=== PATIENT | female | born 1980 | race Caucasian/White ===

== ENCOUNTER 2016-08-04 14:18 | Observation (INO) | payer MEDICAID ==
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
[2016-08-04] MEDS ORDERED: LIDOCAINE 4%/TETRACAINE 0.5%/EPI 0.18% 5 ML TOPICAL SOLN TOP ONE (14:33)
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
[2016-08-04] MEDS ORDERED: MORPHINE SULFATE 10 MG/ML INJ IM ONE (15:42)
[2016-08-04 16:21] LABS: ABSOLUTE BASOPHILS # (AUTO) 0.1 10^3/uL (0.0-0.2); ABSOLUTE EOSINOPHILS # (AUTO) 0.2 10^3/uL (0.0-0.6); ABSOLUTE NEUT (AUTO) 12.4 10^3/uL (1.7-8.2); BASOPHILS % (AUTO) 0.6 % (0-2); EOSINOPHILS % (AUTO) 1.2 % (0-6); HEMATOCRIT 38.7 % (36.0-47.0); HEMOGLOBIN 12.7 g/dL (12.0-15.5); HGB HCT DIFFERENCE -0.6; LYMPHOCYTES % (AUTO) 12.7 % (13-45); MEAN CORPUSCULAR HEMOGLOBIN 29.9 pg (27.0-33.4); MEAN CORPUSCULAR HGB CONC 32.8 g/dL (32.0-36.0); MEAN CORPUSCULAR VOLUME 91 fl (80-97); MONOCYTES % (AUTO) 6.3 % (3-13); RED BLOOD COUNT 4.25 10^6/uL (3.72-5.28); RED CELL DISTRIBUTION WIDTH 12.9 % (11.5-14.0); SEGMENTED NEUTROPHILS % (AUTO) 79.2 % (42-78); WHITE BLOOD COUNT 15.7 10^3/uL (4.0-10.5)
[2016-08-04 16:39] LABS: ALANINE AMINOTRANSFERASE 83 U/L (9-52); ALBUMIN 3.5 g/dL (3.5-5.0); ALKALINE PHOSPHATASE 94 U/L (38-126); ANION GAP 8 (5-19); ASPARTATE AMINO TRANSFERASE 70 U/L (14-36); BILIRUBIN,TOTAL 0.2 mg/dL (0.2-1.3); BLOOD UREA NITROGEN 9 mg/dL (7-20); CALCIUM 9.3 mg/dL (8.4-10.2); CARBON DIOXIDE 30 mmol/L (22-30); CHLORIDE 99 mmol/L (98-107); CREATININE RESULT 0.67 mg/dL (0.52-1.25); GLUCOSE 76 mg/dL (75-110); SODIUM 137.2 mmol/L (137-145); TOTAL PROTEIN 6.4 g/dL (6.3-8.2)
[2016-08-04 16:43] LABS: APPEARANCE,URINE CLEAR; BILIRUBIN,URINE NEGATIVE (NEGATIVE); GLUCOSE, URINE NEGATIVE (NEGATIVE); KETONES,URINE NEGATIVE (NEGATIVE); LEUKOCYTE ESTERASE,URINE NEGATIVE (NEGATIVE); NITRITE,URINE NEGATIVE (NEGATIVE); PROTEIN,URINE NEGATIVE (NEGATIVE); URINE SPECIFIC GRAVITY 1.012; UROBILINOGEN,URINE NEGATIVE mg/dL (<2.0)
--- NOTE | 2016-08-04 16:43 | HISTORY AND PHYSICAL E ---
History and Physical NAME: DORENE DWYER : 1980 AGE: 36Y ADMITTED: 08/04/2016 ROOM: HISTORY OF PRESENT ILLNESS: A 36-year-old female patient presented to the emergency room with a history of pain and swelling on the face and upper lip just to the left of midline. The patient had this pain 3 days ago and increasing in severity along with the pain and this has been going on for the last 2 to 3 days. She went to the primary care and they gave some antibiotic. Came to emergency room with increasing swelling and pain. Patient does not recollect history of an insect bite and never had this kind of problem before. No history of headache. No history of seizures. PAST MEDICAL PROBLEMS: No known medical issues. SURGICAL HISTORY: No major surgeries in the past. REVIEW OF SYSTEMS: As per examination. PHYSICAL EXAMINATION: GENERAL: She is not in any distress. VITAL SIGNS: Afebrile. HEENT: Her lip examination on the face on the left side just above on to of the upper lip just to the left of midline there is about 3 cm area of induration with an abscess with surrounding cellulitis. NECK: No lymphadenopathy in the neck. RESPIRATORY: Both are clear to auscultation. CARDIOVASCULAR: Both heart sounds are regular. No murmur or gallop. ABDOMEN: Soft abdomen. Nontender. No masses palpable. No hernia. EXTREMITIES: Warm and well perfused. IMPRESSION OVERALL: Large face soft tissues of the face abscess. PLAN: IV antibiotics, Unasyn started. She will *------*. Will post for emergency incision and drainage. DICTATING PHYSICIAN: COREY DE LA CRUZ M.D. [id number] PHY#: [id number] ID: [id number] JOB#: [id number] ACCT: [id number] cc:NO Gabrielle DARBY
[2016-08-04] MEDS ORDERED: AMPICILLIN SOD/SULBACTAM 3 GM VIAL IV PRN (18:35)
[2016-08-04] MEDS ORDERED: KETOROLAC TROMETHAMINE INJ/PF 30 MG/1 ML SDV IV ONE (18:45)
[2016-08-04] MEDS ORDERED: HYDROMORPHONE HCL INJ/PF 2 MG/ML AMPULE IV ONE (18:45)
[2016-08-04] MEDS: AMPICILLIN SODIUM/SULBACTAM NA 3 GM in NORMAL SALINE 100 ML IV SCH (20:29)
[2016-08-04] MEDS ORDERED: AMPICILLIN SOD/SULBACTAM 3 GM VIAL ONE (21:12)
[2016-08-05] MEDS: AMPICILLIN SODIUM/SULBACTAM NA 3 GM in NORMAL SALINE 100 ML IV SCH ×3 (00:58→11:50)
[2016-08-05] MEDS: HYDROMORPHONE HCL INJ/PF 2 MG/ML AMPULE IV PRN ×2 (06:00→09:08)
[2016-08-05] MEDS ORDERED: DIPHENHYDRAMINE HCL 50 MG/ML VIAL IV PRN (06:03)
[2016-08-05] MEDS ORDERED: KETOROLAC TROMETHAMINE INJ/PF 30 MG/1 ML SDV IV SCH (12:00)
[2016-08-05 12:15] VITALS: BP 109/68
--- NOTE | 2016-08-05 16:51 | OPERATIVE REPORT E ---
Operative Report NAME: DORENE DWYER : 1980 AGE: 36Y DATE OF SURGERY: 08/04/2016 ROOM: 531 PREOPERATIVE DIAGNOSIS: @ POSTOPERATIVE DIAGNOSIS: @ PROCEDURE: Incision and drainage of an abscess on the left side of the face, right on the upper lip on the left side, a large abscess along with necrotic tissue . Most likely due to a spider bite. 1. The procedure was incision and drainage of a complex, multiloculated abscess. 2. Debridement of the soft-tissue necrosis. SURGEON: COREY DE LA CRUZ M.D. ANESTHESIA: IV sedation with 2 mg Dilaudid and 30 of Toradol IV given and 1% lidocaine local anesthesia. Prior to this, the patient was explained about the indications, risks, benefits. Informed consent was obtained, and it was done at the bedside. TISSUE REMOVED OR ALTERED: @ PROCEDURE: The area was cleaned sterile field. After that, 1% lidocaine area. After that, about a centimeter thick, 10 mL pus was drained from underneath. After the pus was drained, necrotic tissue around that area was debrided sharply until the wound was clean and then the abscess cavity was irrigated with normal saline. Wound was lightly dressings were applied. The patient tolerated the procedure well. She will be admitted for intravenous antibiotic therapy and pain management. DICTATING PHYSICIAN: COREY DE LA CRUZ M.D. [id number] PHY#: [id number] ID: [id number] JOB#: [id number] ACCT: [id number] cc:COREY DE LA CRUZ M.D. > MTDD
--- NOTE | 2016-08-05 16:53 | DISCHARGE SUMMARY E ---
Discharge Summary NAME: DORENE DWYER : 1980 AGE: 36Y ADMITTED: 08/04/2016 DISCHARGED: 08/05/2016 ADMITTING DIAGNOSIS: Cellulitis of the face with abscess of the upper lip face area. DISCHARGE DIAGNOSIS: Cellulitis of the face with abscess of the upper lip face area. OPERATION: Incision and drainage of the abscess of the upper lip of the face along with debridement of the underlying necrotic soft tissue. Patient today feeling better, resolving. Still has some induration which will take several days to resolve which was explained to the patient. She is being discharged home with pain medication of oxycodone and antibiotics to continue, Augmentin twice a day. She will follow up in the clinic. DICTATING PHYSICIAN: COREY DE LA CRUZ M.D. [id number] PHY#: [id number] ID: [id number] JOB#: [id number] ACCT: [id number] cc:Paul FRENCH M.D. > MTDD
--- NOTE | 2016-08-05 17:08 | DISCHARGE SUMMARY E ---
Discharge Summary NAME: DORENE DWYER : 1980 AGE: 36Y ADMITTED: 08/04/2016 DISCHARGED: 08/05/2016 ADMITTING DIAGNOSIS: Cellulitis of the face along with abscess on the left part of the upper lip. PROCEDURE: Incision and drainage of the abscess. She needed to have IV antibiotics and was admitted overnight last night. Today, she is feeling better. Edema is coming down, cellulitis resolving. She is being discharged home. DISCHARGE MEDICATIONS: 1. Augmentin for 10 days. 2. Pain medication, oxycodone. FOLLOWUP: Surgery Clinic in 1-2 weeks. She was given instructions about change of wound dressings and will report to the Emergency Room or Surgery Clinic office as needed. DICTATING PHYSICIAN: COREY DE LA CRUZ M.D. [id number] PHY#: [id number] ID: [id number] JOB#: [id number] ACCT: [id number] cc:Paul FRENCH M.D. >
== END 2016-08-05 14:11 | disposition home or self-care (01) ==
LOC: ER 14:18 → UNDOADMOB 16:38 → EH 16:38 → 5 16:38 → EH 19:34
PROVIDERS: ATTEND Colon & Rectal Surgery
PROC: 0W920ZZ Drainage of Face, Open Approach (ICD-10-PCS; principal; 2016-08-04)
DX: L02.01 Cutaneous abscess of face (principal)
CPT/HCPCS: 40799; 99285; 96372; 96374; 96375; 36415; 87070; 87205; 85025; 81025; 87075; 87077; 80053; 81001; 87186; 70491; G0378 ×3; J0295; J1885 ×2; J2270; J1170 ×2; J3490

== ENCOUNTER 2018-02-20 18:25 | Emergency (ER) | payer SELFPAY ==
[2018-02-20 18:31] VITALS: BP 114/62
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
[2018-02-20] MEDS ORDERED: DIPH/PERTUSS(ACELL)/TETANUS VAC/PF 0.5 ML SYR (>=10YO) IM ONE (19:02)
== END 2018-02-20 19:24 | disposition home or self-care (01) ==
LOC: ER 18:25
DX: S61.012A Laceration without foreign body of left thumb without damage to nail, initial encounter (principal); W26.0XXA Contact with knife, initial encounter; Y93.89 Activity, other specified; Y92.009 Unspecified place in unspecified non-institutional (private) residence as the place of occurrence of the external cause; F17.210 Nicotine dependence, cigarettes, uncomplicated; Z71.6 Tobacco abuse counseling; Z86.14 Personal history of Methicillin resistant Staphylococcus aureus infection; Z88.5 Allergy status to narcotic agent; Z88.8 Allergy status to other drugs, medicaments and biological substances; Z23 Encounter for immunization
CPT/HCPCS: 90471; 90715; 99283; 99406

== ENCOUNTER 2019-03-04 18:53 | Inpatient (IN) | payer OTHER ==
[2019-03-04] MEDS ORDERED: NALOXONE HCL INJ/PF 0.4 MG/1 ML SDV IV ONE (19:06)
[2019-03-04] MEDS ORDERED: NORMAL SALINE 500 ML with NALOXONE HCL 2 MG IV PRN ×2 (19:06)
[2019-03-04] MEDS ORDERED: NORMAL SALINE 1000 ML 1,000 ML IV ONE (19:07)
[2019-03-04] MEDS ORDERED: ONDANSETRON HCL INJ/PF 4 MG/2 ML SDV ONE (19:13)
[2019-03-04] MEDS ORDERED: AMMONIA INHALANTS 10 AMPUL/BOX IH ONE (19:15)
[2019-03-04 19:24] LABS: ABSOLUTE BASOPHILS # (AUTO) 0.1 10^3/uL (0.0-0.2); ABSOLUTE EOSINOPHILS # (AUTO) 0.2 10^3/uL (0.0-0.6); ABSOLUTE LYMPHOCYTES (AUTO) 2.4 10^3/uL (0.5-4.7); ABSOLUTE MONOCYTES (AUTO) 0.9 10^3/uL (0.1-1.4); ABSOLUTE NEUT (AUTO) 4.1 10^3/uL (1.7-8.2); BASOPHILS % (AUTO) 0.8 % (0-2); EOSINOPHILS % (AUTO) 2.8 % (0-6); HEMATOCRIT 34.5 % (36.0-47.0); HEMOGLOBIN 11.6 g/dL (12.0-15.5); LYMPHOCYTES % (AUTO) 31.5 % (13-45); MEAN CORPUSCULAR HEMOGLOBIN 30.7 pg (27.0-33.4); MEAN CORPUSCULAR HGB CONC 33.5 g/dL (32.0-36.0); MEAN CORPUSCULAR VOLUME 92 fl (80-97); MONOCYTES % (AUTO) 11.5 % (3-13); PLATELET COUNT 279 10^3/uL (150-450); RED BLOOD COUNT 3.76 10^6/uL (3.72-5.28); RED CELL DISTRIBUTION WIDTH 14.2 % (11.5-14.0); SEGMENTED NEUTROPHILS % (AUTO) 53.4 % (42-78); TOTAL CELLS COUNTED % (AUTO) 100 %; WHITE BLOOD COUNT 7.6 10^3/uL (4.0-10.5)
[2019-03-04] MEDS ORDERED: SUCCINYLCHOLINE CHLORIDE INJ 200 MG/10 ML VIAL IV ONE (19:28)
[2019-03-04] MEDS ORDERED: ETOMIDATE INJ/PF 20 MG/10 ML SDV IV ONE (19:28)
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
[2019-03-04 19:41] LABS: ALBUMIN 3.6 g/dL (3.5-5.0); ALKALINE PHOSPHATASE 67 U/L (38-126); ANION GAP 5 (5-19); ASPARTATE AMINO TRANSFERASE 42 U/L (14-36); BILIRUBIN,TOTAL 0.3 mg/dL (0.2-1.3); BLOOD UREA NITROGEN 10 mg/dL (7-20); CALCIUM 8.9 mg/dL (8.4-10.2); CARBON DIOXIDE 28 mmol/L (22-30); CHLORIDE 106 mmol/L (98-107); GLUCOSE 78 mg/dL (75-110); POTASSIUM 3.9 mmol/L (3.6-5.0); TOTAL PROTEIN 5.9 g/dL (6.3-8.2)
[2019-03-04 19:48] LABS: ACETAMINOPHEN < 10 ug/mL (10-30); ALCOHOL < 10 mg/dL (NONE DETECTED)
[2019-03-04 20:15] LABS: APPEARANCE,URINE CLEAR; BILIRUBIN,URINE NEGATIVE (NEGATIVE); COLOR,URINE STRAW; GLUCOSE, URINE NEGATIVE (NEGATIVE); KETONES,URINE TRACE mg/dL (NEGATIVE); LEUKOCYTE ESTERASE,URINE NEGATIVE (NEGATIVE); NITRITE,URINE NEGATIVE (NEGATIVE); PROTEIN,URINE NEGATIVE (NEGATIVE); URINE SPECIFIC GRAVITY 1.004; UROBILINOGEN,URINE NEGATIVE mg/dL (<2.0)
[2019-03-04 20:35] LABS: URINE AMPHETAMINES SCREEN UNCONFIRMED POSITIVE; URINE BARBITURATES SCREEN NEGATIVE; URINE BENZODIAZEPINES SCREEN NEGATIVE; URINE COCAINE SCREEN NEGATIVE; URINE MARIJUANA (THC) SCREEN NEGATIVE; URINE METHADONE SCREEN NEGATIVE; URINE PHENCYCLIDINE SCREEN NEGATIVE
--- NOTE | 2019-03-04 20:38 | RADIOLOGY REPORT (SQ) ---
EXAM DESCRIPTION: XR CHEST 1 VIEW COMPLETED DATE/TME: 03/04/2019 19:29 CLINICAL HISTORY: 38 years, Female, post intubation COMPARISON: Prior study from 03/12/2013. NUMBER OF VIEWS: One TECHNIQUE: Single frontal view of the chest was obtained LIMITATIONS: None. FINDINGS: Endotracheal tube tip is located within the trachea, approximately 1.7 cm above the eleonora. Enteric drainage tube tip projects about the gastric body with side-port located the GE junction. Cardiac and mediastinal contours are stable. Lungs are clear. No pleural effusion or pneumothorax. Unusual configuration of the right glenoid could be projectional/artifactual. IMPRESSION: Clear lungs. Endotracheal tube tip is located within the trachea, approximately 1.7 cm above the eleonora. Enteric drainage tube tip is located within the gastric body with side-port located at the GE junction. Consider advancement for optimal positioning. Unusual configuration of the right glenoid could be projectional/artifactual. Consider correlation with dedicated radiographs of the right shoulder. copyright 2010 [employer]- All Rights Reserved
[2019-03-04] MEDS ORDERED: MIDAZOLAM 2 MG/2 ML INJ ONE (21:09)
--- NOTE | 2019-03-04 21:41 | RADIOLOGY REPORT (SQ) ---
CT HEAD WITHOUT IV CONTRAST EXAM DATE: 03/04/2019 8:44 PM CDT HISTORY: altered LOC. COMPARISON: None. TECHNIQUE: CT scan of the brain without IV contrast. This exam was performed according to our departmental dose-optimization program, which includes automated exposure control, adjustment of the mA and/or kV according to patient size and/or use of iterative reconstruction technique. FINDINGS: The ventricles, cisterns, and sulci are age-appropriate. No evidence of acute infarction, intracranial hemorrhage, extra-axial fluid collection, or midline shift. No air-fluid levels are seen in the paranasal sinuses to suggest acute sinusitis. No depressed skull fracture. IMPRESSION: No acute intracranial findings.
--- NOTE | 2019-03-04 22:20 | EKG REPORT ---
SEVERITY:- ABNORMAL ECG - SINUS RHYTHM ABNORMAL T, CONSIDER ISCHEMIA, ANTERIOR LEADS : Confirmed by: Padmini Combs MD 04-Mar-2019 22:18:43
[2019-03-05] MEDS ORDERED: MIDAZOLAM 2 MG/2 ML INJ ONE (00:26)
[2019-03-05] MEDS ORDERED: MIDAZOLAM 2 MG/2 ML INJ IV ONE (00:27)
--- NOTE | 2019-03-05 00:44 | CRITICAL CARE ADMISSION REPORT ---
HPI Date:: 03/05/19 Time:: 00:24 Reason for ICU Reason:: Polydrug overdose HPI: The patient had to be brought to the hospoital becuse of worsening obtundation. She had taken it appears an assortment of recreational and prescripotion drugs ( not her own) found at her bedside including meloxicam, ppregabablin and clonidinbe. Her UDS sreen was postive for amphetamine. ON arrival to the ED the patient had to be intubated. She apears hemodynamically stable at this trime There is no history of head trauma or seizure disorder. The patient has never been intubated previouslsly. According to lydia camacho at bedside she is an otherwoise healthy 39n yo. The [atriwent is in a NSR. Her bp is within normal limits. CT of the head was unremarakable. Past Medical History Cardiac Medical History: Denies: Coronary Artery Disease, Myocardial Infarction, Hypertension Pulmonary Medical History: Denies: Asthma, Bronchitis, Chronic Obstructive Pulmonary Disease (COPD), Pneumonia Neurological Medical History: Denies: Seizures GI Medical History: Reports: Gastroesophageal Reflux Disease - With Denies: Hiatal Hernia Musculoskeltal Medical History: Denies: Arthritis, Fibromyalgia Psychiatric History Note: Long history of psychiatric issues. has a history of generalized anxiety disorder., major depression, OCD Hematology: Reports: Anemia - Not with this Denies: Hemophilia, Sickle Cell Disease Infectious Medical History: Reports: Methicillin-Resistant Staph Aureus Denies: HIV Past Surgical History Past Surgical History: Reports: Section - x4, Cholecystectomy Denies: Pacemaker Social/Family History - Social History Lives with: Friend Smoking Status: Unknown if Ever Smoked Last Alcohol Use: 03/05/19 Hx Recreational Drug Use: Yes - Amphetamines. - Medication/Allergies Home Medications: Acetaminophen [Tylenol 325 mg Tablet] 325 mg PO BIDP PRN 08/05/16 Amox Tr/Potassium Clavulanate [Augmentin 875-125 mg Tablet] 1 tab PO BID 08/05/16 Butalb/Acetaminophen/Caffeine [Fioricet (50-325-40 mg) Tablet] 1 tab PO BIDP PRN 08/05/16 Oxycodone HCl 5 mg PO Q6H PRN 08/05/16 No122/Iron/Folic Acid [ Multi Tablet] 1 each PO DAILY 08/05/16 Allergies/Adverse Reactions: hydrocodone [Hydrocodone] Allergy (Severe, Verified 03/04/19 19:05) Hives, throat swells prochlorperazine edisylate [From Compazine] Allergy (Severe, Verified 03/04/19 19:05) Can't breath prochlorperazine maleate [From Compazine] Allergy (Severe, Verified 03/04/19 19:05) Shortness of Breath Review of Systems ROS unobtainable: Due to endotracheal tube, Due to mental status Physical Exam Vital Signs: Temp Pulse Resp BP Pulse Ox 16 102/63 96 03/04/19 22:31 03/04/19 22:31 03/04/19 22:31 Intake & Output 03/03/19 03/04/19 03/05/19 06:59 06:59 06:59 Intake Total 1004 Output Total 1000 Balance 4 Weight 58.9 kg Weight/Height Weight 58.9 kg Eye exam: PRESENT: conjunctiva pink Mouth exam: PRESENT: moist Respiratory exam: PRESENT: unlabored Cardiovascular exam: PRESENT: RRR Pulses: PRESENT: normal dorsalis pedis pul Musculoskeletal exam: PRESENT: full ROM Neurological exam: PRESENT: altered - The patient is altered and on the ventilator. FDOe s not arous presently Laboratory/Radiographs Laboratory Results: 03/04/19 19:10 03/04/19 19:10 03/04/19 03/04/19 03/04/19 19:10 19:10 19:10 WBC 7.6 RBC 3.76 Hgb 11.6 L Hct 34.5 L MCV 92 MCH 30.7 MCHC 33.5 RDW 14.2 H Plt Count 279 Seg Neutrophils % 53.4 Sodium 139.2 Potassium 3.9 Chloride 106 Carbon Dioxide 28 Anion Gap 5 BUN 10 Creatinine 0.75 Est GFR ( Amer) > 60 Glucose 78 Calcium 8.9 Total Bilirubin 0.3 AST 42 H Alkaline Phosphatase 67 Total Protein 5.9 L Albumin 3.6 Serum HCG, Qual NEGATIVE Urine Color Urine Appearance Urine pH Ur Specific [place] Urine Protein Urine Glucose (UA) Urine Ketones Urine Blood Urine Nitrite Ur Leukocyte Esterase Urine WBC (Auto) Urine RBC (Auto) 03/04/19 19:58 WBC RBC Hgb Hct MCV MCH MCHC RDW Plt Count Seg Neutrophils % Sodium Potassium Chloride Carbon Dioxide Anion Gap BUN Creatinine Est GFR ( Amer) Glucose Calcium Total Bilirubin AST Alkaline Phosphatase Total Protein Albumin Serum HCG, Qual Urine Color STRAW Urine Appearance CLEAR Urine pH 6.0 Ur Specific [place] 1.004 Urine Protein NEGATIVE Urine Glucose (UA) NEGATIVE Urine Ketones TRACE H Urine Blood NEGATIVE Urine Nitrite NEGATIVE Ur Leukocyte Esterase NEGATIVE Urine WBC (Auto) 3 Urine RBC (Auto) 0 Impressions: Chest X-Ray 03/04/19 19:29 IMPRESSION: Clear lungs. Endotracheal tube tip is located within the trachea, approximately 1.7 cm above the eleonora. Enteric drainage tube tip is located within the gastric body with side-port located at the GE junction. Consider advancement for optimal positioning. Unusual configuration of the right glenoid could be projectional/artifactual. Consider correlation with dedicated radiographs of the right shoulder. copyright 2011 [employer]- All Rights Reserved Head CT 03/04/19 20:44 IMPRESSION: No acute intracranial findings. Critical Time -: The care of a critically ill patient is dynamic. This note represents a static moment in the admission process. orders and treatments may be given simulataneously and urgentl, and time is not sales representative electric service of the treatment process. This patient requires Critical Care secondary to life threating organ or limb dysfunction. Without the need for Critical Care services, the patient is at risk for increasid mortality and morbidity. Assessment & Plan - Diagnosis (1) Altered level of consciousness Is this a current diagnosis for this admission?: Yes Plan: The patient was fairly obtunded and it was not clear she couldfs protect her airway. The poatient received 2 mg of Narcan with simeon serrano n her level of cinsciousness. In all likekihoofd thepatient should not have to remained intubated > 124 hours given her suspected ingestions. (2) Hypotension Is this a current diagnosis for this admission?: Yes Plan: Hypotensionis not significant and mild. the patient has warm extrwemities The p[atient does not appear to need vigorous fluid resuscitation. (3) Substance abuse Is this a current diagnosis for this admission?: Yes Plan: The patiwent apparently took amphertamines. THe support will be primarily supportiv ecare. What is mnot entirely clear iis if this action represented a suicide attempt or not.
[2019-03-05] MEDS ORDERED: MIDAZOLAM HCL 50 MG/100 ML RTUINJ ONE (02:47)
[2019-03-05] MEDS ORDERED: MIDAZOLAM HCL 50 MG/100 ML RTUINJ IV PRN (02:59)
[2019-03-05] MEDS: RINGERS SOLUTION,LACTATED 1,000 ML IV PRN ×2 (04:03→20:50)
--- NOTE | 2019-03-05 08:19 | PDOC PROGRESS REPORT ---
Subjective Progress Note for:: 03/05/19 Subjective:: This patient came in with an unspecified drug overdose. She was rather obtunded and required intubation in THE ED. Amphetamines were found on her drug screen. There is reason to believe there may have been other coingestant prescription drugs as well. The patient has a long history of multiple psychiatric diagnoses. She had been in her normal stateof health before this sudden change prior to admission. Reason For Visit: INTENTIONAL OVERDOSE,HYPERTENSION, Physical Exam Vital Signs: Temp Pulse Resp BP Pulse Ox 97.9 F 117 H 16 95/61 L 98 03/05/19 06:43 03/05/19 03:09 03/05/19 06:43 03/05/19 06:43 03/05/19 06:43 Intake & Output 03/04/19 03/05/19 03/06/19 06:59 06:59 06:59 Intake Total 1012 Output Total 1950 Balance -938 Weight 58.6 kg General appearance: PRESENT: well-developed, well-nourished Head exam: PRESENT: atraumatic, normocephalic Eye exam: PRESENT: conjunctiva pink, EOMI, PERRLA. ABSENT: scleral icterus Ear exam: PRESENT: normal external ear exam Mouth exam: PRESENT: moist, tongue midline Neck exam: PRESENT: full ROM. ABSENT: carotid bruit, JVD, lymphadenopathy, thyromegaly Respiratory exam: ABSENT: accessory muscle use, retraction, tachypnea Cardiovascular exam: PRESENT: RRR. ABSENT: diastolic murmur, rubs, systolic murmur Pulses: PRESENT: normal dorsalis pedis pul, +2 pedal pulses bilateral Vascular exam: PRESENT: normal capillary refill GI/Abdominal exam: PRESENT: normal bowel sounds, soft. ABSENT: distended, gu arding, mass, organolmegaly, rebound, tenderness Rectal exam: PRESENT: deferred Extremities exam: PRESENT: full ROM Musculoskeletal exam: PRESENT: full ROM Neurological exam: PRESENT: awake, oriented to person, oriented to place, oriented to time, oriented to situation, CN II-XII grossly intact, other - Patient presently sedated on the ventialtor. Not responsive to commands or opening eyes presently.. ABSENT: motor sensory deficit Psychiatric exam: PRESENT: appropriate affect, normal mood. ABSENT: homicidal ideation, suicidal ideation Skin exam: PRESENT: dry, intact, warm. ABSENT: cyanosis, rash Results Laboratory Results: 03/04/19 19:10 03/04/19 19:10 03/04/19 03/04/19 03/04/19 19:10 19:10 19:10 WBC 7.6 RBC 3.76 Hgb 11.6 L Hct 34.5 L MCV 92 MCH 30.7 MCHC 33.5 RDW 14.2 H Plt Count 279 Seg Neutrophils % 53.4 Sodium 139.2 Potassium 3.9 Chloride 106 Carbon Dioxide 28 Anion Gap 5 BUN 10 Creatinine 0.75 Est GFR ( Amer) > 60 Glucose 78 Calcium 8.9 Total Bilirubin 0.3 AST 42 H Alkaline Phosphatase 67 Total Protein 5.9 L Albumin 3.6 Serum HCG, Qual NEGATIVE Urine Color Urine Appearance Urine pH Ur Specific [place] Urine Protein Urine Glucose (UA) Urine Ketones Urine Blood Urine Nitrite Ur Leukocyte Esterase Urine WBC (Auto) Urine RBC (Auto) 03/04/19 19:58 WBC RBC Hgb Hct MCV MCH MCHC RDW Plt Count Seg Neutrophils % Sodium Potassium Chloride Carbon Dioxide Anion Gap BUN Creatinine Est GFR ( Amer) Glucose Calcium Total Bilirubin AST Alkaline Phosphatase Total Protein Albumin Serum HCG, Qual Urine Color STRAW Urine Appearance CLEAR Urine pH 6.0 Ur Specific [place] 1.004 Urine Protein NEGATIVE Urine Glucose (UA) NEGATIVE Urine Ketones TRACE H Urine Blood NEGATIVE Urine Nitrite NEGATIVE Ur Leukocyte Esterase NEGATIVE Urine WBC (Auto) 3 Urine RBC (Auto) 0 Impressions: Chest X-Ray 03/04/19 19:29 IMPRESSION: Clear lungs. Endotracheal tube tip is located within the trachea, approximately 1.7 cm above the eleonora. Enteric drainage tube tip is located within the gastric body with side-port located at the GE junction. Consider advancement for optimal positioning. Unusual configuration of the right glenoid could be projectional/artifactual. Consider correlation with dedicated radiographs of the right shoulder. copyright 2010 [employer]- All Rights Reserved Head CT 03/04/19 20:44 IMPRESSION: No acute intracranial findings. Assessment & Plan - Diagnosis (1) Altered level of consciousness Is this a current diagnosis for this admission?: Yes Plan: The patient was fairly obtunded and it was not clear she couldfs protect her airway. The patient received 2 mg of Narcan with simeon serrano n her level of cinsciousness. In all likekihood the patient should not have to remained intubated > 124 hours given her suspected ingestions. 03/05 The patient is moving her extremities She is on a low dose Versed infusion presently (2) Hypotension Is this a current diagnosis for this admission?: Yes Plan: Hypotensionis not significant and mild. the patient has warm extrwemities The p[atient does not appear to need vigorous fluid resuscitation. 03/05 her hypotension has resolved (3) Substance abuse Is this a current diagnosis for this admission?: Yes Plan: The patiwent apparently took amphertamines. THe support will be primarily supportiv ecare. What is not entirely clear iis if this action represented a suicide attempt or not. 03/05 epatient has a very longhistory of substance abuse. Has never had to be intubated previously , however.
--- NOTE | 2019-03-05 08:49 | RADIOLOGY REPORT (SQ) ---
EXAM DESCRIPTION: CHEST SINGLE VIEW COMPLETED DATE/TIME: 03/05/2019 8:41 am REASON FOR STUDY: resp. failure COMPARISON: 03/04/2019 EXAM PARAMETERS: NUMBER OF VIEWS: One view. TECHNIQUE: Single frontal radiographic view of the chest acquired. RADIATION DOSE: NA LIMITATIONS: None. FINDINGS: Stable AP portable examination with endotracheal tube and esophagogastric tube in satisfac tory position. No acute abnormality of the lungs. IMPRESSION: Stable AP portable examination with endotracheal tube and esophagogastric tube in satisf actory position. No acute abnormality of the lungs. TECHNICAL DOCUMENTATION: JOB ID: [id number] [employer]- All Rights Reserved Reading location - IP/workstation name: [email or web address]
[2019-03-05] MEDS ORDERED: SUCCINYLCHOLINE CHLORIDE INJ 200 MG/10 ML VIAL ONE (09:59)
[2019-03-05] MEDS ORDERED: ETOMIDATE INJ/PF 20 MG/10 ML SDV IV ONE (10:00)
[2019-03-05 10:08] LABS: ABSOLUTE BASOPHILS # (AUTO) 0.1 10^3/uL (0.0-0.2); ABSOLUTE EOSINOPHILS # (AUTO) 0.2 10^3/uL (0.0-0.6); ABSOLUTE LYMPHOCYTES (AUTO) 2.7 10^3/uL (0.5-4.7); ABSOLUTE MONOCYTES (AUTO) 0.8 10^3/uL (0.1-1.4); BASOPHILS % (AUTO) 0.7 % (0-2); EOSINOPHILS % (AUTO) 2.5 % (0-6); HEMATOCRIT 36.9 % (36.0-47.0); HEMOGLOBIN 12.2 g/dL (12.0-15.5); LYMPHOCYTES % (AUTO) 30.9 % (13-45); MEAN CORPUSCULAR HEMOGLOBIN 30.4 pg (27.0-33.4); MEAN CORPUSCULAR VOLUME 92 fl (80-97); MONOCYTES % (AUTO) 8.9 % (3-13); PLATELET COUNT 241 10^3/uL (150-450); RED CELL DISTRIBUTION WIDTH 14.5 % (11.5-14.0); TOTAL CELLS COUNTED % (AUTO) 100 %; WHITE BLOOD COUNT 8.8 10^3/uL (4.0-10.5)
[2019-03-05 10:24] LABS: ALBUMIN 3.5 g/dL (3.5-5.0); ALKALINE PHOSPHATASE 52 U/L (38-126); ANION GAP 7 (5-19); ASPARTATE AMINO TRANSFERASE 52 U/L (14-36); BILIRUBIN,DIRECT 0.2 mg/dL (0.0-0.4); BILIRUBIN,TOTAL 0.8 mg/dL (0.2-1.3); BLOOD UREA NITROGEN 9 mg/dL (7-20); CALCIUM 8.3 mg/dL (8.4-10.2); CARBON DIOXIDE 23 mmol/L (22-30); CHLORIDE 110 mmol/L (98-107); GLUCOSE 75 mg/dL (75-110); POTASSIUM 4.1 mmol/L (3.6-5.0); TOTAL PROTEIN 5.8 g/dL (6.3-8.2)
[2019-03-05 10:26] LABS: ARTERIAL BLOOD BASE EXCESS -0.6 mmol/L; ARTERIAL BLOOD FIO2 21; ARTERIAL BLOOD H2CO3 1.14 mmol/L (1.05-1.35); ARTERIAL BLOOD HCO3 23.7 mmol/L (20-24); ARTERIAL BLOOD O2 SATURATION 97.3 % (94-98); ARTERIAL BLOOD PCO2 37.9 mmHg (35-45); ARTERIAL BLOOD PH 7.41 (7.35-7.45); ARTERIAL BLOOD PO2 93.7 mmHg (80-100); ARTERIAL BLOOD TOTAL CO2 24.9 mmol/L (21-25)
[2019-03-05] MEDS ORDERED: DEXAMETHASONE SOD PHOSPHATE INJ 4 MG/1 ML VIAL ONE (11:20)
[2019-03-05] MEDS: FAMOTIDINE INJ/PF 20 MG/2 ML SDV IV SCH ×2 (11:25→20:59)
[2019-03-05] MEDS: ENOXAPARIN SODIUM INJ 30 MG/0.3 ML DISP.SYRIN SUBCUT SCH (11:25)
[2019-03-05] MEDS ORDERED: RACEPINEPHRINE HCL 2.25% NEB 0.5 ML AMPUL NEB PRN (11:31)
[2019-03-05] MEDS ORDERED: DEXAMETHASONE SOD PHOSPHATE INJ 4 MG/1 ML VIAL IV ONE (12:00)
[2019-03-05] MEDS: LORAZEPAM INJ 2 MG/1 ML VIAL IV PRN ×2 (12:49→15:30)
[2019-03-05] MEDS ORDERED: DEXMEDETOMIDINE IN 0.9 % NACL 400 MCG/100 ML RTUPB IV ONE (14:12)
[2019-03-05] MEDS ORDERED: DEXMEDETOMIDINE IN NS 400 MCG/100 ML RTUPB IV PRN (14:26)
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
[2019-03-06] MEDS: LORAZEPAM INJ 2 MG/1 ML VIAL IV PRN ×2 (00:43→13:40)
--- NOTE | 2019-03-06 06:41 | RADIOLOGY REPORT (SQ) ---
CLINICAL HISTORY: resp failure COMPARISON: March 04, 2019. TECHNIQUE: XR CHEST 1 VIEW 03/06/2019 6:00 AM CDT FINDINGS: Cardiac silhouette is normal in size. Lungs are clear without consolidation, atelectasis, mass or edema. There is no pleural effusion. There is no pneumothorax. There are no acute osseous findings. Endotracheal and nasogastric tubes have been removed. IMPRESSION: Clear lungs.
[2019-03-06 06:56] LABS: HEMATOCRIT 35.8 % (36.0-47.0); HEMOGLOBIN 11.6 g/dL (12.0-15.5); MEAN CORPUSCULAR HGB CONC 32.5 g/dL (32.0-36.0); MEAN CORPUSCULAR VOLUME 92 fl (80-97); PLATELET COUNT 247 10^3/uL (150-450); RED BLOOD COUNT 3.88 10^6/uL (3.72-5.28); RED CELL DISTRIBUTION WIDTH 14.1 % (11.5-14.0); WHITE BLOOD COUNT 9.8 10^3/uL (4.0-10.5)
[2019-03-06 07:12] LABS: ALBUMIN 3.4 g/dL (3.5-5.0); ALKALINE PHOSPHATASE 59 U/L (38-126); ANION GAP 7 (5-19); ASPARTATE AMINO TRANSFERASE 32 U/L (14-36); BILIRUBIN,DIRECT 0.1 mg/dL (0.0-0.4); BILIRUBIN,TOTAL 0.3 mg/dL (0.2-1.3); BLOOD UREA NITROGEN 9 mg/dL (7-20); CALCIUM 8.8 mg/dL (8.4-10.2); CARBON DIOXIDE 25 mmol/L (22-30); CHLORIDE 104 mmol/L (98-107); GLUCOSE 90 mg/dL (75-110); POTASSIUM 4.1 mmol/L (3.6-5.0); TOTAL PROTEIN 5.7 g/dL (6.3-8.2)
--- NOTE | 2019-03-06 08:07 | PDOC PROGRESS REPORT ---
Subjective Progress Note for:: 03/06/19 Subjective:: This patient came in with an unspecified drug overdose. She was rather obtunded and required intubation in THE ED. Amphetamines were found on her drug screen. There is reason to believe there may have been other coingestant prescription drugs as well. The patient has a long history of multiple psychiatric diagnoses. She had been in her normal stateof health before this sudden change prior to admission. 03/06 The patient was extubated yesterday. She was acting quite bizarrely in the aftermath. Had agitated delirium and was trying to sit up constanlty and get out of bed. This necessitated us placing her on Precedex Apparently, things settled down overnight and Predex has been weaned to some extent. The patientapparently told one of the nurses that she grabbed up a slough of pills in a fit of pique. it appears that the patient had been troubled bythe fact that she is going to skilled nursing shortly for several years/ Reason For Visit: POLYDRUG OVERDOSE,ENCEPHALOPATHY Physical Exam Vital Signs: Temp Pulse Resp BP Pulse Ox 98.4 F 71 16 115/73 100 03/06/19 06:00 03/06/19 07:45 03/06/19 06:00 03/06/19 05:20 03/06/19 06:00 Intake & Output 03/05/19 03/06/19 03/07/19 06:59 06:59 06:59 Intake Total 1012 2108 1 Output Total 1950 1430 Balance -938 678 1 Weight 58.6 kg 60.3 kg General appearance: PRESENT: no acute distress, well-developed, well-nourished Head exam: PRESENT: atraumatic, normocephalic Eye exam: PRESENT: conjunctiva pink, EOMI, PERRLA. ABSENT: scleral icterus Ear exam: PRESENT: normal external ear exam Mouth exam: PRESENT: moist, tongue midline Neck exam: PRESENT: full ROM. ABSENT: carotid bruit, JVD, lymphadenopathy, thyromegaly Respiratory exam: PRESENT: symmetrical, unlabored Cardiovascular exam: PRESENT: RRR. ABSENT: diastolic murmur, rubs, systolic murmur Pulses: PRESENT: normal dorsalis pedis pul, +2 pedal pulses bilateral Vascular exam: PRESENT: normal capillary refill GI/Abdominal exam: PRESENT: normal bowel sounds, soft. ABSENT: distended, guarding, mass, organolmegaly, rebound, tenderness Rectal exam: PRESENT: deferred Extremities exam: PRESENT: full ROM. ABSENT: calf tenderness Neurological exam: PRESENT: alert, awake, oriented to person, oriented to place, oriented to time, oriented to situation, CN II-XII grossly intact. ABSENT: motor sensory deficit Psychiatric exam: PRESENT: appropriate affect, normal mood. ABSENT: homicidal ideation, suicidal ideation Skin exam: PRESENT: dry, intact, warm. ABSENT: cyanosis, rash Results Laboratory Results: 03/06/19 06:38 03/06/19 06:38 03/05/19 03/05/19 03/05/19 09:54 09:54 10:20 WBC 8.8 RBC 4.00 Hgb 12.2 Hct 36.9 MCV 92 MCH 30.4 MCHC 33.0 RDW 14.5 H Plt Count 241 Seg Neutrophils % 57.0 Carbonic Acid 1.14 HCO3/H2CO3 Ratio 20:1 ABG pH 7.41 ABG pCO2 37.9 ABG pO2 93.7 ABG HCO3 23.7 ABG O2 Saturation 97.3 ABG Base Excess -0.6 FiO2 21 Sodium 140.3 Potassium 4.1 Chloride 110 H Carbon Dioxide 23 Anion Gap 7 BUN 9 Creatinine 0.86 Est GFR ( Amer) > 60 Glucose 75 Calcium 8.3 L Magnesium 2.0 Total Bilirubin 0.8 AST 52 H Alkaline Phosphatase 52 Total Protein 5.8 L Albumin 3.5 03/06/19 03/06/19 06:38 06:38 WBC 9.8 RBC 3.88 Hgb 11.6 L Hct 35.8 L MCV 92 MCH 30.0 MCHC 32.5 RDW 14.1 H Plt Count 247 Seg Neutrophils % Carbonic Acid HCO3/H2CO3 Ratio ABG pH ABG pCO2 ABG pO2 ABG HCO3 ABG O2 Saturation ABG Base Excess FiO2 Sodium 136.0 L Potassium 4.1 Chloride 104 Carbon Dioxide 25 Anion Gap 7 BUN 9 Creatinine 0.72 Est GFR ( Amer) > 60 Glucose 90 Calcium 8.8 Magnesium Total Bilirubin 0.3 AST 32 Alkaline Phosphatase 59 Total Protein 5.7 L Albumin 3.4 L 03/06/19 06:38 Troponin I < 0.012 Impressions: Head CT 03/04/19 20:44 IMPRESSION: No acute intracranial findings. Chest X-Ray 03/06/19 06:00 IMPRESSION: Clear lungs. Assessment & Plan - Diagnosis (1) Altered level of consciousness Is this a current diagnosis for this admission?: Yes Plan: The patient was fairly obtunded and it was not clear she couldfs protect her airway. The patient received 2 mg of Narcan with simeon baermasherin hairspstephone n her level of cinsciousness. In all likekihood the patient should not have to remained intubated > 124 hours given her suspected ingestions. 03/05 The patient is moving her extremities She is on a low dose Versed infusion presently 03/06 Patient is more alert and cogent today. She had taken a number of drugs both precriptionandnnot inclding amphetamine, Lrica, clonidine and perhaps others as well. (2) Substance abuse Is this a current diagnosis for this admission?: Yes Plan: The patiwent apparently took amphertamines. THe support will be primarily supportiv ecare. What is not entirely clear iis if this action represented a suicide attempt or not. 03/05 The patient has a very longhistory of substance abuse. Has never had to be intubated previously , however. Thepatient can be downgraded once off Precedex. Will have psychiatric therapist see her today.
[2019-03-06] MEDS: NICOTINE 21 MG/24 HR PATCH.TD24 TD SCH (11:55)
[2019-03-06] MEDS: ENOXAPARIN SODIUM INJ 30 MG/0.3 ML DISP.SYRIN SUBCUT SCH (11:56)
[2019-03-06] MEDS ORDERED: HALOPERIDOL LACTATE ORAL SOLN 10 MG/5 ML UDCUP ONE (13:44)
[2019-03-06] MEDS: HALOPERIDOL LACTATE ORAL SOLN 10 MG/5 ML UDCUP PO SCH ×2 (14:07→22:03)
[2019-03-06] MEDS: BENZTROPINE MESYLATE 1 MG TABLET PO SCH (22:04)
[2019-03-07] MEDS: HALOPERIDOL LACTATE ORAL SOLN 10 MG/5 ML UDCUP PO SCH ×2 (06:14→13:14)
--- NOTE | 2019-03-07 08:17 | RADIOLOGY REPORT (SQ) ---
EXAM DESCRIPTION: CHEST SINGLE VIEW COMPLETED DATE/TIME: 03/07/2019 6:14 am REASON FOR STUDY: resp failure COMPARISON: 03/06 NUMBER OF VIEWS: One view. TECHNIQUE: Single frontal radiographic view of the chest acquired. LIMITATIONS: None. FINDINGS: LUNGS AND PLEURA: No opacities, masses or pneumothorax. No pleural effusion. MEDIASTINUM AND HILAR STRUCTURES: No masses. Contour normal. HEART AND VASCULAR STRUCTURES: Heart normal in size. Normal vasculature. BONES: No acute findings. HARDWARE: None in the chest. OTHER: No other significant finding. IMPRESSION: NO SIGNIFICANT RADIOGRAPHIC FINDING IN THE CHEST. TECHNICAL DOCUMENTATION: JOB ID: [id number] [employer]- All Rights Reserved Reading location - IP/workstation name: [email or web address]
--- NOTE | 2019-03-07 08:52 | PDOC PROGRESS REPORT ---
Subjective Progress Note for:: 03/07/19 Subjective:: This patient came in with an unspecified drug overdose. She was rather obtunded and required intubation in THE ED. Amphetamines were found on her drug screen. There is reason to believe there may have been other coingestant prescription drugs as well. The patient has a long history of multiple psychiatric diagnoses. She had been in her normal stateof health before this sudden change prior to admission. 03/06 The patient was extubated yesterday. She was acting quite bizarrely in the aftermath. Had agitated delirium and was trying to sit up constanlty and get out of bed. This necessitated us placing her on Precedex Apparently, things settled down overnight and Predex has been weaned to some extent. The patient apparently told one of the nurses that she grabbed up a slough of pills in a fit of pique. it appears that the patient had been troubled by the fa ct that she is going to custodial shortly for several years 03/07 Her delirium jhas resolved. the patient is at times angry Reason For Visit: POLYDRUG OVERDOSE,ENCEPHALOPATHY Physical Exam Vital Signs: Temp Pulse Resp BP Pulse Ox 98.0 F 72 16 105/43 L 97 03/07/19 08:00 03/07/19 08:00 03/07/19 08:00 03/07/19 08:00 03/07/19 08:00 Intake & Output 03/06/19 03/07/19 03/08/19 06:59 06:59 06:59 Intake Total 2108 51 Output Total 1430 530 Balance 678 -479 Weight 60.3 kg 61.1 kg Results Laboratory Results: 03/06/19 06:38 03/06/19 06:38 03/06/19 06:38 Troponin I < 0.012 Impressions: Head CT 03/04/19 20:44 IMPRESSION: No acute intracranial findings. Chest X-Ray 03/07/19 06:00 IMPRESSION: NO SIGNIFICANT RADIOGRAPHIC FINDING IN THE CHEST. Assessment & Plan - Diagnosis (1) Altered level of consciousness Is this a current diagnosis for this admission?: Yes Plan: The patient was fairly obtunded and it was not clear she couldfs protect her airway. The patient received 2 mg of Narcan with simeon molina her level of cinsciousness. In all likekihood the patient should not have to remained intubated > 124 hours given her suspected ingestions. 03/05 The patient is moving her extremities She is on a low dose Versed infusion presently 03/06 Patient is more alert and cogent today. She had taken a number of drugs both precriptionandnnot inclding amphetamine, Lrica, clonidine and perhaps others as well. 03/07 Her delirum has resolved. the patient is rather parabnoid questioning people as to who they are and their mtoivations. (2) Substance abuse Is this a current diagnosis for this admission?: Yes Plan: The patiwent apparently took amphertamines. THe support will be primarily supportiv ecare. What is not entirely clear iis if this action represented a suicide attempt or not. 03/05 The patient has a very longhistory of substance abuse. Has never had to be intubated previously , however. Thepatient can be downgraded once off Precedex. Will have pond worker see her today. 03/07 She si off of Precedex. No signs of a withdrawl syndrome. (3) Psychiatric disturbance Is this a current diagnosis for this admission?: Yes Plan: The patient has a long histiory of mental helkath issues including OCD, bipolar disorded etc., ON coming into the hospital she was nt on any meds. The psychiatric socila worker porter gotten medication for her after dicussing the case with the consulting psychiatrist. Has been sdtarte of Haldol and Cogentin.
[2019-03-07] MEDS: BENZTROPINE MESYLATE 1 MG TABLET PO SCH (10:08)
[2019-03-07] MEDS: NICOTINE 21 MG/24 HR PATCH.TD24 TD SCH (10:09)
[2019-03-07] MEDS: ENOXAPARIN SODIUM INJ 30 MG/0.3 ML DISP.SYRIN SUBCUT SCH (10:10)
[2019-03-08] MEDS: BENZTROPINE MESYLATE 1 MG TABLET PO SCH ×3 (00:38→21:35)
[2019-03-08] MEDS: HALOPERIDOL LACTATE ORAL SOLN 10 MG/5 ML UDCUP PO SCH ×4 (00:38→21:35)
--- NOTE | 2019-03-08 08:16 | RADIOLOGY REPORT (SQ) ---
EXAM DESCRIPTION: CHEST SINGLE VIEW COMPLETED DATE/TIME: 03/08/2019 6:26 am REASON FOR STUDY: resp failure COMPARISON: None FINDINGS: Single-view chest AP portable upright. Normal study with clear lungs and normal cardiomediastinal silhouette. Bones intact. TECHNICAL DOCUMENTATION: JOB ID: [id number] Reading location - IP/workstation name: [email or web address]
--- NOTE | 2019-03-08 08:33 | PDOC PROGRESS REPORT ---
Subjective Progress Note for:: 03/08/19 Subjective:: This patient came in with an unspecified drug overdose. She was rather obtunded and required intubation in THE ED. Amphetamines were found on her drug screen. There is reason to believe there may have been other coingestant prescription drugs as well. The patient has a long history of multiple psychiatric diagnoses. She had been in her normal stateof health before this sudden change prior to admission. 03/06 The patient was extubated yesterday. She was acting quite bizarrely in the aftermath. Had agitated delirium and was trying to sit up constanlty and get out of bed. This necessitated us placing her on Precedex Apparently, things settled down overnight and Predex has been weaned to some extent. The patient apparently told one of the nurses that she grabbed up a slough of pills in a fit of pique. it appears that the patient had been troubled by the fa ct that she is going to [facility] shortly for several years 03/07 Her delirium jhas resolved. the patient is at times angry Reason For Visit: POLYDRUG OVERDOSE,ENCEPHALOPATHY Physical Exam Vital Signs: Temp Pulse Resp BP Pulse Ox 97.1 F 79 14 98/50 L 100 03/08/19 02:00 03/08/19 02:00 03/08/19 02:00 03/08/19 02:00 03/08/19 02:00 Intake & Output 03/07/19 03/08/19 03/09/19 06:59 06:59 06:59 Intake Total 51 300 Output Total 530 600 Balance -479 -300 Weight 61.1 kg 58 kg General appearance: PRESENT: no acute distress, well-developed, well-nourished Head exam: PRESENT: atraumatic, normocephalic Eye exam: PRESENT: conjunctiva pink, EOMI, PERRLA. ABSENT: scleral icterus Ear exam: PRESENT: normal external ear exam Mouth exam: PRESENT: moist, tongue midline Neck exam: PRESENT: full ROM. ABSENT: carotid bruit, JVD, lymphadenopathy, thyromegaly Cardiovascular exam: PRESENT: RRR. ABSENT: diastolic murmur, rubs, systolic murmur Pulses: PRESENT: normal dorsalis pedis pul, +2 pedal pulses bilateral Vascular exam: PRESENT: normal capillary refill GI/Abdominal exam: PRESENT: normal bowel sounds, soft. ABSENT: distended, guarding, mass, organolmegaly, rebound, tenderness Rectal exam: PRESENT: deferred Neurological exam: PRESENT: alert, awake, oriented to person, oriented to place, oriented to time, oriented to situation, CN II-XII grossly intact. ABSENT: mo tor sensory deficit Psychiatric exam: PRESENT: appropriate affect, normal mood. ABSENT: homicidal ideation, suicidal ideation Skin exam: PRESENT: dry, intact, warm. ABSENT: cyanosis, rash Results Laboratory Results: 03/06/19 06:38 03/06/19 06:38 03/06/19 06:38 Troponin I < 0.012 Impressions: Head CT 03/04/19 20:44 IMPRESSION: No acute intracranial findings. Assessment & Plan - Diagnosis (1) Altered level of consciousness Is this a current diagnosis for this admission?: Yes Plan: The patient was fairly obtunded and it was not clear she couldfs protect her airway. The patient received 2 mg of Narcan with simeon serrano n her level of cinsciousness. In all likekihood the patient should not have to remained intubated > 124 hours given her suspected ingestions. 03/05 The patient is moving her extremities She is on a low dose Versed infusion presently 03/06 Patient is more alert and cogent today. She had taken a number of drugs both precriptionandnnot inclding amphetamine, Lrica, clonidine and perhaps others as well. 03/07 Her delirum has resolved. the patient is rather parabnoid questioning people as to who they are and their mtoivations. 03/08 The opatient has been alert , oriented (2) Substance abuse Is this a current diagnosis for this admission?: Yes Plan: The patiwent apparently took amphertamines. THe support will be primarily supportiv ecare. What is not entirely clear iis if this action represented a suicide attempt or not. 03/05 The patient has a very longhistory of substance abuse. Has never had to be intubated previously , however. Thepatient can be downgraded once off Precedex. Will have psychiatric mental health nurse see her today. 03/07 She si off of Precedex. No signs of a withdrawl syndrome. (3) Psychiatric disturbance Is this a current diagnosis for this admission?: Yes Plan: The patient has a long histiory of mental [facility] issues including OCD, bipolar disorded etc., ON coming into the hospital she was nt on any meds. The psychiatric socila worker porter gotten medication for her after dicussing the case with the consulting psychiatrist. Has been sdtarte of Venkatesh and Al[place]. 03/08 awaitin repeat Psych evaluation - Time Time Spent with patient: Less than 15 minutes Anticipated discharge: Other Within: within 24 hours - Inpatient Certification Medical Necessity: Need Close Monitoring Due to Risk of Patient Decompensation
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
[2019-03-08] MEDS: NICOTINE 21 MG/24 HR PATCH.TD24 TD SCH (11:06)
[2019-03-08] MEDS: ENOXAPARIN SODIUM INJ 30 MG/0.3 ML DISP.SYRIN SUBCUT SCH (11:48)
[2019-03-08] MEDS: BUTALB/ACETAMINOPHEN/CAFFEINE 1 TAB EACH PO PRN ×2 (12:34→20:23)
[2019-03-09] MEDS: HALOPERIDOL LACTATE ORAL SOLN 10 MG/5 ML UDCUP PO SCH ×3 (05:26→22:32)
[2019-03-09] MEDS: ENOXAPARIN SODIUM INJ 30 MG/0.3 ML DISP.SYRIN SUBCUT SCH (09:54)
[2019-03-09] MEDS: NICOTINE 21 MG/24 HR PATCH.TD24 TD SCH (09:55)
[2019-03-09] MEDS: BENZTROPINE MESYLATE 1 MG TABLET PO SCH ×2 (09:56→22:32)
[2019-03-09] MEDS: BUTALB/ACETAMINOPHEN/CAFFEINE 1 TAB EACH PO PRN ×2 (11:00→18:35)
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
[2019-03-10] MEDS: HALOPERIDOL LACTATE ORAL SOLN 10 MG/5 ML UDCUP PO SCH ×3 (05:33→22:00)
--- NOTE | 2019-03-10 10:03 | PDOC PROGRESS REPORT ---
Subjective Progress Note for:: 03/10/19 Subjective:: Patient was seen and examined. No acute changes overnight. Is medically stable for discharge. She is in no acute distress. She is asking when she is going home. Reason For Visit: POLYDRUG OVERDOSE,ENCEPHALOPATHY Physical Exam Vital Signs: Temp Pulse Resp BP Pulse Ox 98.6 F 86 18 99/58 L 100 03/10/19 00:00 03/10/19 00:00 03/10/19 00:00 03/10/19 00:00 03/10/19 00:00 Intake & Output 03/09/19 03/10/19 03/11/19 06:59 06:59 06:59 Intake Total 899 1166 Output Total 2800 2 Balance -1901 1164 Weight 126 lb 15.78 oz 128 lb 4.944 oz Exam: Patient is no acute distress Alert oriented to time place person No anxiety or depression Head: atraumatic normocephalic Pupils: are equal reactive Neck: is supple and trachea is central no lymphadenopathy No pharyngeal erythema or exudates Heart: Regular rate and rhythm Lungs: clear no distress Abdomen: nontender nondistended Neurological exam: unremarkable Musculoskeletal: No joint swelling or effusion chronic lower back pain and tenderness Results Laboratory Results: 03/06/19 06:38 03/06/19 06:38 03/06/19 06:38 Troponin I < 0.012 Impressions: Head CT 03/04/19 20:44 IMPRESSION: No acute intracranial findings. Assessment and Plan - Diagnosis (1) Acute respiratory failure with hypoxia Is this a current diagnosis for this admission?: Yes Plan: Resolved. Secondary to toxic encephalipathy from polydrug overdose. Successfully extubated on 03/05/19. Medically clear for discharge. (2) Substance abuse Is this a current diagnosis for this admission?: Yes Plan: Psychiatry is following. Discharge to psych facility is an issue due to her legal problems.
[2019-03-10] MEDS: BENZTROPINE MESYLATE 1 MG TABLET PO SCH ×2 (10:24→22:00)
[2019-03-10] MEDS: BUTALB/ACETAMINOPHEN/CAFFEINE 1 TAB EACH PO PRN ×2 (10:24→18:45)
[2019-03-10] MEDS: NICOTINE 21 MG/24 HR PATCH.TD24 TD SCH (10:24)
[2019-03-10] MEDS: ENOXAPARIN SODIUM INJ 30 MG/0.3 ML DISP.SYRIN SUBCUT SCH (10:27)
--- NOTE | 2019-03-10 14:41 | PSYCHOLOGICAL NOTE ---
Psych Note - Psych Note Date seen by psych provider: 03/10/19 Psych Note: Presenting Problem: OD. Patient presented to the ED 03/04/19 via EMS after boyfriend found her at their home unresponsive, unknown amount of down time, he found his medications of Lyrica/Meloxicam/Clonidine next to her, said she had made SI statements earlier, has a psychiatric hx, is supposed to be on medication but is noncompliant. UDS was positive for amphetamine. She was a medically admitted 03/05/19 for altered level of consciousness, HTN and SA. Family (Mother and Aunt) natural supports and present often. Aunt stated patient has a Mh Hx of psychotic break downs that were not drug induced, there is family Hx of MH: maternal grandmother Schizophrenia/Mother, Father, Brother Depression and substance abuse. Still waiting to hear back from mother regarding what behavioral health specialist has to say about mother paying restitution and if that then exempts patient from having to serve fdc/residential time. Diagnosis: OD Unknown MH Hx but reported by boyfriend Noncompliance with medication Impression/Plan: Recommendation to maintain IVC. Patient had a significant OD attempt (per patient and mother because she did not want to go to fdc/residential which is still a possibility, has a 5 year sentencing possibility). Waiting for mother to let [facility] know what patient's behavioral health specialist says. She called him and left vm so was waiting on his call back. Mother has direct phone number to [facility] and said would make contact as soon as she has information. Consulted with Dr. Etienne regarding the management and care of patient. Attending Hospitalist aware of recommendations.
[2019-03-11] MEDS: HALOPERIDOL LACTATE ORAL SOLN 10 MG/5 ML UDCUP PO SCH (06:56)
[2019-03-11] MEDS: BUTALB/ACETAMINOPHEN/CAFFEINE 1 TAB EACH PO PRN (07:33)
[2019-03-11] MEDS: BENZTROPINE MESYLATE 1 MG TABLET PO SCH (09:20)
[2019-03-11] MEDS: NICOTINE 21 MG/24 HR PATCH.TD24 TD SCH (09:21)
[2019-03-11] MEDS: ENOXAPARIN SODIUM INJ 30 MG/0.3 ML DISP.SYRIN SUBCUT SCH (09:21)
[2019-03-11] MEDS ORDERED: HALOPERIDOL LACTATE ORAL SOLN 10 MG/5 ML UDCUP PO ONE (09:30)
--- NOTE | 2019-03-11 10:36 | PSYCHOLOGICAL NOTE ---
Psych Note - Psych Note Date seen by psych provider: 03/11/19 Time seen by psych provider: 09:47 - Phone evaluation with mother and then patient from [phone]. Psych Note: Presenting Problem: OD. Patient presented to the ED 03/04/19 via EMS after boyfriend found her at their home unresponsive, unknown amount of down time, he found his medications of Lyrica/Meloxicam/Clonidine next to her, said she had made SI statements earlier, has a psychiatric hx, is supposed to be on medication but is noncompliant. UDS was positive for amphetamine. She was a medically admitted 03/05/19 for altered level of consciousness, HTN and SA. Family (Mother and Aunt) natural supports and present often. Aunt stated patient has a Mh Hx of psychotic break downs that were not drug induced, there is family Hx of MH: maternal grandmother Schizophrenia/Mother, Father, Brother Depression and substance abuse. Mother Martell called this clinician while she was in patient's room. She stated she had not heard from the solar system designer yet. When informed per public record regarding court calendar patient has court scheduled today and tomorrow mother said she was not aware and patient heard in background said her solar system designer was handling it. Patient was talking over mother so mother gave patient the phone. This clinician spoke with patient over the phone. She was asking for medication for anxiety/panic attack, identified she has a hx of such and yesterday she stated "I had a mild panic attack from being stuck in this tiny room, I;m not going to lie I walked out of the hospital yesterday because I needed to break away and get fresh air, I just went to the gazebo." She acknowledged previous diagnoses of Anxiety/Panic Attack, Borderline Personality Disorder, Depression and ADHD. She reported she was going to [facility] for medications (Xanax, Adderall, Wellbutrin and another medication maybe Lexapro or Abilify) but it has been 1.5 years since being on medication due to losing insurance. She stated she stood in fron to a [employer]chand[employer] who told her if a $4,000 restitution fee (mother is jono benedict on paying per mother if it does mean no residential/mcc time) was paid she would not have to go to residential/mcc and would get probation. She further stated her Aunt as decided to pay $1000 entry fee for a year long rehab program in [place], [place] (mother in background and did not deny). Patient alert and oriented x5 with linear thinking, she denied current SI/HI, admitted to OD for fear of residential/mcc time, was able to be engaged and carry on dialogue conversation which was within normal limits for rate/tone/prosody. Diagnosis: OD attempt to avoid residential/mcc time per patient and mother Noncompliance with medication x1.5 years due to losing insurance Borderline Personality Disorder by Hx per patient Anxiety with Panic Attack Disorder by Hx per patient Depressive Disorder by Hx per patient Attention Deficit Hyperactivity Disorder by Hx per patient Medication recommendations made by the psychiatric medication provider, Dr. Lexie MD., includes: Discontinue Haldol 2.5MG every 8 hours Discontinue Ativan 1MG every 4 hours as needed anxiety/agitation Discontinue Cogentin 0.5MG every 12 hours Add Effexor 37.5MG twice a day for depression/focus/energy Add Buspar 5MG in the morning for calming effect/anxiety/depression Add Buspar 10MG at night for calming effect/anxiety/depression/sleep Impression/Plan: Patient is cleared from acute psychiatric services. Recommendation to rescind IVC. Patient alert and oriented x5 with linear thinking, she denied current SI/HI, admitted to OD for fear of residential/mcc time, was able to be engaged and carry on dialogue conversation which was within normal limits for rate/tone/prosody. Mother has confirmed she is going to pay the $4000 restitution if it means no residential/mcc time. Patient (mother present and di not say otherwise) noted Aunt paying $1000 entry fee for 1 year long rehab program in [place], [place]. provided medication recommendations for discharge regimen. Provided the outpatient SA ([facility] for linkage and assistance with SA detox/rehab, listed detox facilities, listed [facility] and [facility] for jewel hole rough opener programs) and MH ([facility] for crisis/talk therapy/linkage to other supports and services, highlighted [facility] [phone] for dual diagnosis) resource sheets. Included mother in plan of care. She is to have control over medications and administration. Consulted with Dr. Etienne regarding the management and care of patient. Attending Hospitalist made aware of recommendations.
--- NOTE | 2019-03-11 11:54 | PDOC DISCHARGE SUMMARY ---
General - Admit/Disc Date/PCP Admission Date/Primary Care Provider: 03/05/19 00:10 Discharge Date: 03/11/19 - Discharge Diagnosis (1) Acute respiratory failure with hypoxia Is this a current diagnosis for this admission?: Yes (2) Substance abuse Is this a current diagnosis for this admission?: Yes - Additional Information Resuscitation Status: Full Code Discharge Diet: As Tolerated Discharge Activity: Activity As Tolerated Prescriptions: Buspirone HCl [Buspar 10 mg Tablet] 5 mg PO Q12 #30 tablet Home Medications: Buspirone HCl [Buspar 10 mg Tablet] 5 mg PO Q12 #30 tablet 03/11/19 Nicotine [Nicoderm 21 mg/24 Hr Transderm Patch] 1 each TD DAILY patch.td24 03/11/19 History of Present Illness History of Present Illness: DORENE DWYER is a 38 year old female The patient had to be brought to the hospoital becuse of worsening obtundation. She had taken it appears an assortment of recreational and prescripotion drugs ( not her own) found at her bedside including meloxicam, ppregabablin and clonidinbe. Her UDS sreen was postive for amphetamine. ON arrival to the ED the patient had to be intubated. She apears hemodynamically stable at this trime There is no history of head trauma or seizure disorder. The patient has never been intubated previouslsly. According to lydia camacho at bedside she is an otherwoise healthy 39n yo. The [atriwent is in a NSR. Her bp is within normal limits. CT of the head was unremarakable. Hospital Course Hospital Course: (1) Acute respiratory failure with hypoxia Resolved. Secondary to toxic encephalipathy from polydrug overdose. Successfully extubated on 03/05/19. Medically clear for discharge. (2) Substance abuse She was seen by psychiatry. They put her on involuntary confinement. Today I received a call from Dariela Sinclair from psychiatry and she tells me that they are rescinding IVC and there are okay with the patient going home. She contacted the psychiatrist or psychologist mgmt consultant and they recommended buspir one for the patient. Physical Exam Vital Signs: Temp Pulse Resp BP Pulse Ox 98.4 F 75 16 118/68 100 03/11/19 11:09 03/11/19 11:09 03/11/19 11:09 03/11/19 11:09 03/11/19 11:09 Intake & Output 03/10/19 03/11/19 03/12/19 06:59 06:59 06:59 Intake Total 1166 946 Output Total 2 Balance 1164 946 Weight 128 lb 4.944 oz 127 lb 6.835 oz Exam: patient is no acute distress Alert oriented to time place person No anxiety or depression Head: atraumatic normocephalic Pupils: are equal reactive Neck: is supple and trachea is central no lymphadenopathy No pharyngeal erythema or exudates Heart: Regular rate and rhythm Lungs: clear no distress Abdomen: nontender nondistended Neurological exam: unremarkable Musculoskeletal: No joint swelling or effusion chronic lower back pain and tenderness Results Laboratory Results: 03/06/19 06:38 03/06/19 06:38 03/06/19 06:38 Troponin I < 0.012 Impressions: Head CT 03/04/19 20:44 IMPRESSION: No acute intracranial findings. Qualifiers - * PATIENT BEING DISCHARGED WITH ANY OF THE FOLLOWING DIAGNOSIS: No Acute Heart Failure - Is this a Heart Failure Patient?: No Plan Time Spent: Greater than 30 Minutes - 35 minutes
[2019-03-11] MEDS ORDERED: BUSPIRONE HCL 10 MG TABLET PO ONE (12:15)
[2019-03-11 13:26] VITALS: BP 108/63
[2019-03-11] MEDS ORDERED: BUSPIRONE HCL 10 MG TABLET PO SCH (22:00)
== END 2019-03-11 14:00 | disposition home or self-care (01) | DRG 917 ==
LOC: ER 18:53 → EH 03-05 00:10 → ICU 03-05 02:37 → 4N 03-08 20:00
PROVIDERS: ADMIT Internal Medicine; ATTEND Internal Medicine
PROC: 0BH17EZ Insertion of Endotracheal Airway into Trachea, Via Natural or Artificial Opening (ICD-10-PCS; principal; 2019-03-04)
PROC: 5A1935Z Respiratory Ventilation, Less than 24 Consecutive Hours (ICD-10-PCS; 2019-03-04)
DX: T43.622A Poisoning by amphetamines, intentional self-harm, initial encounter (principal); J96.01 Acute respiratory failure with hypoxia; F31.9 Bipolar disorder, unspecified; F42.9 Obsessive-compulsive disorder, unspecified; F41.9 Anxiety disorder, unspecified; F17.200 Nicotine dependence, unspecified, uncomplicated; I95.9 Hypotension, unspecified; Y92.013 Bedroom of single-family (private) house as the place of occurrence of the external cause; Z90.49 Acquired absence of other specified parts of digestive tract; Z65.3 Problems related to other legal circumstances; Z86.14 Personal history of Methicillin resistant Staphylococcus aureus infection; Z78.1 Physical restraint status
CPT/HCPCS: 36415; 51702; 70450; 71045; 80053; 80307; 81001; 82803; 82962; 83735; 84484; 84703; 85025; 85027; 93005; 93010; 94002; 94003; 96374; 96375; 99291; J0330; J1100; J1650; J2060; J2250; J2310; J2405; J3490; J7030; J7040; J7120; S0028

== ENCOUNTER 2019-05-18 10:44 | Emergency (ER) | payer SELFPAY ==
[2019-05-18] MEDS ORDERED: IBUPROFEN 600 MG TABLET PO ONE (11:05)
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
[2019-05-18 11:54] LABS: ABSOLUTE EOSINOPHILS # (AUTO) 0.4 10^3/uL (0.0-0.6); ABSOLUTE LYMPHOCYTES (AUTO) 2.9 10^3/uL (0.5-4.7); ABSOLUTE MONOCYTES (AUTO) 0.7 10^3/uL (0.1-1.4); ABSOLUTE NEUT (AUTO) 4.6 10^3/uL (1.7-8.2); BASOPHILS % (AUTO) 0.5 % (0-2); EOSINOPHILS % (AUTO) 4.2 % (0-6); HEMATOCRIT 36.7 % (36.0-47.0); HEMOGLOBIN 12.2 g/dL (12.0-15.5); LYMPHOCYTES % (AUTO) 33.3 % (13-45); MEAN CORPUSCULAR HGB CONC 33.3 g/dL (32.0-36.0); MEAN CORPUSCULAR VOLUME 93 fl (80-97); MONOCYTES % (AUTO) 8.4 % (3-13); PLATELET COUNT 286 10^3/uL (150-450); RED BLOOD COUNT 3.94 10^6/uL (3.72-5.28); RED CELL DISTRIBUTION WIDTH 14.8 % (11.5-14.0); SEGMENTED NEUTROPHILS % (AUTO) 53.6 % (42-78); TOTAL CELLS COUNTED % (AUTO) 100 %; WHITE BLOOD COUNT 8.6 10^3/uL (4.0-10.5)
[2019-05-18 12:09] LABS: ALKALINE PHOSPHATASE 65 U/L (38-126); ANION GAP 6 (5-19); ASPARTATE AMINO TRANSFERASE 25 U/L (14-36); BILIRUBIN,DIRECT 0.1 mg/dL (0.0-0.4); BILIRUBIN,TOTAL 0.2 mg/dL (0.2-1.3); BLOOD UREA NITROGEN 10 mg/dL (7-20); CALCIUM 9.4 mg/dL (8.4-10.2); CARBON DIOXIDE 31 mmol/L (22-30); CHLORIDE 102 mmol/L (98-107); GLUCOSE 86 mg/dL (75-110); POTASSIUM 4.3 mmol/L (3.6-5.0); TOTAL PROTEIN 6.6 g/dL (6.3-8.2)
--- NOTE | 2019-05-18 12:11 | RADIOLOGY REPORT (SQ) ---
EXAM DESCRIPTION: FOOT LEFT COMPLETE COMPLETED DATE/TIME: 05/18/2019 12:00 pm REASON FOR STUDY: infection to left foot COMPARISON: None. NUMBER OF VIEWS: Three views. TECHNIQUE: AP, lateral and oblique without weight bearing radiographic images acquired of the left f oot. LIMITATIONS: None. FINDINGS: MINERALIZATION: Normal. BONES: No acute fracture or dislocation. No worrisome bone lesions. No significant osteophytes. JOINTS: No erosions. No jocelyn-articular osteopenia. No chondrocalcinosis. SOFT TISSUES: No swelling. No calcifications. OTHER: No other significant finding. IMPRESSION: NO SIGNIFICANT RADIOGRAPHIC ABNORMALITY. TECHNICAL DOCUMENTATION: JOB ID: [id number] [employer]- All Rights Reserved Reading location - IP/workstation name: [email or web address]
[2019-05-18] MEDS ORDERED: OXYCODONE-ACETAMINOPHEN 5-325 MG TABLET PO ONE (13:22)
[2019-05-18] MEDS ORDERED: SULFAMETHOXAZOLE/TRIMETHOPRIM 800-160 MG TABLET PO ONE (13:22)
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
[2019-05-18 15:45] VITALS: BP 103/59
== END 2019-05-18 15:44 | disposition home or self-care (01) ==
LOC: ER 10:44
DX: L03.119 Cellulitis of unspecified part of limb (principal); S90.822A Blister (nonthermal), left foot, initial encounter; X58.XXXA Exposure to other specified factors, initial encounter; F17.210 Nicotine dependence, cigarettes, uncomplicated; Z86.14 Personal history of Methicillin resistant Staphylococcus aureus infection; Z88.6 Allergy status to analgesic agent; Z88.5 Allergy status to narcotic agent; Z88.8 Allergy status to other drugs, medicaments and biological substances
CPT/HCPCS: 36415; 80053; 84703; 85025; 87040; 87070; 87077; 87186; 87205; 99283

== ENCOUNTER → 2019-10-16 | Outpatient (CLI) | payer BC, OTHER ==
--- NOTE | 2019-10-16 14:10 | RADIOLOGY REPORT (SQ) ---
EXAM DESCRIPTION: MRI RT UPPER JOINT WITHOUT IMAGES COMPLETED DATE/TIME: 10/16/2019 10:31 am REASON FOR STUDY: PAIN IN R WRIST M25.531 PAIN IN RIGHT WRIST COMPARISON: None. TECHNIQUE: Right wrist images acquired and stored on PACS. Multiplanar images include fat sensitive sequences as T1, fluid sensitive sequences as FST2/STIR, cartilage sensitive sequences as FSPD, grad ient echo sequences. LIMITATIONS: The study is moderately limited by motion artifact. FINDINGS: BONE MARROW: Mild distal pole scaphoid edema with minimal subchondral cyst formation. Lik destinee degenerative given slight triscaphe narrowing. CARPAL ALIGNMENT AND ARTICULATION: As above. Mild trapeziometacarpal thumb base narrowing. Alignmen t looks relatively anatomic. EFFUSION: None noted. No loose bodies. SCAPHOLUNATE LIGAMENT: Intact without tear. LUNATE-TRIQUETRAL LIGAMENT: Intact without tear. TFC COMPLEX: Probable fraying along the undersurface. No high-grade or full-thickness tear detected. EXTRINSIC LIGAMENTS AND DISTAL RADIO-ULNAR JOINT: Dorsal and volar distal RUJ intact without subluxat ion of the distal ulna. 1-6 EXTENSOR COMPARTMENTS: Normal. Specifically no tendinopathy of the abductor pollicis longus or ex tensor pollicis brevis to suggest de Quervain's Syndrome. CARPAL TUNNEL AND MEDIAN NERVE: Normal volume and morphology of the carpal tunnel proximally at the l evel of the radiocarpal joint and distally at the hook of the hamate. No thickening or signal alterat ion of the median nerve. OTHER: No other significant finding. IMPRESSION: 1. 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 2. Other findings as above. Allowing for mild fraying along the undersurface of the TFCC, intrinsic ligaments look normal. 3. Limiting motion. TECHNICAL DOCUMENTATION: JOB ID: [id number] 2010 [email or web address] All Rights Reserved Reading location - IP/workstation name: [email or web address]
== END ==
LOC: RAD 10:05
PROVIDERS: ATTEND Surgery Plastic and Reconstructive Surgery
DX: M25.531 Pain in right wrist (principal)